=== PATIENT | female | born 1940 ===

== ENCOUNTER 2022-06-02 13:17 | Emergency (ER) | payer MEDICARE ==
[2022-06-02 13:47] LABS: ABG BASE EXCESS -28.4 mmol/L (-2.0-3.0); ABG CARBOXYHEMOGLOBIN 0.3 % (0.0-1.5); ABG METHEMOGLOBIN 0.6 % (0.0-1.5); ABG OXYGEN CONTENT 12.7 mL/dL (15.0-23.0); ABG OXYGEN SATURATION 99.4 % (95.0-98.0); ABG OXYHEMOGLOBIN 98.5 % (94.0-100.0); ABG PCO2 31 mmHg (35-45); ABG TOTAL HEMOGLOBIN 8.4 G/dL (12.0-18.0); PO2, ARTERIAL BG 373.3 mmHg (71.0-79.0); SOURCE, BLOOD GAS ARTERIAL; TEMPERATURE, FAHRENHEIT, BG 98.6 FAHREN (96.0-98.6)
[2022-06-02 13:50] LABS: ABG PH 6.847 (7.35-7.450); SITE, BLOOD GAS ALINE
[2022-06-02 13:51] LABS: O2 DEVICE,BLOOD GAS AMBU-BAG (ROOM AIR)
[2022-06-02 14:20] LABS: BASOPHILS % (AUTO) 0.4 % (0.0-2.0); EOSINOPHILS % (AUTO) 0.6 % (1.0-6.0); HEMATOCRIT 22.8 % (36-46); LYMPHOCYTES # (AUTO) 2.1 K/uL (1.0-4.8); LYMPHOCYTES % (AUTO) 21.1 % (22.0-44.0); MEAN CORPUSCULAR HEMOGLOBIN 33.9 pg (26.0-34.0); MEAN CORPUSCULAR HGB CONC 29.5 G/dL (31.0-37.0); MEAN CORPUSCULAR VOLUME 115 fL (80-100); MONOCYTES # (AUTO) 0.2 K/uL (0.1-1.0); MONOCYTES % (AUTO) 2.4 % (2.0-9.0); NEUTROPHILS # (AUTO) 7.6 K/uL (1.8-7.7); NEUTROPHILS % (AUTO) 75.5 % (40.0-70.0); RED BLOOD CELL COUNT(AUTO) 1.98 MIL/uL (4.00-5.20); RED CELL DISTRIBUTION WIDTH 18.9 % (11.5-14.5)
[2022-06-02 14:34] LABS: B-TYPE NATRIURETIC PEPTIDE 204 pg/mL (0-100)
[2022-06-02 14:35] LABS: ALANINE AMINOTRANSFERASE 2414 U/L (12-78); ALBUMIN 1.6 g/dL (3.4-5.0); ALKALINE PHOSPHATASE 112 U/L (46-116); ANION GAP 17 mmol/L (8-16); CALCIUM, TOTAL 7.7 mg/dL (8.8-10.5); CARBON DIOXIDE 12 mmol/L (22-29); CHLORIDE 120 mmol/L (98-107); CREATININE 3.99 mg/dL (0.60-1.30); GLUCOSE,RANDOM 158 mg/dL (70-110); LIPASE 339 U/L (73-393); SODIUM SERUM 149 mmol/L (136-145); TOTAL PROTEIN, SERUM 4.3 g/dL (6.4-8.2); UREA NITROGEN, BLOOD 79 mg/dL (7-18)
[2022-06-02 14:46] LABS: LACTIC ACID 11.3 mmol/L (0.4-2.0)
[2022-06-02 14:47] LABS: GLOMERULAR FILTR. RATE CALC 11 mL/min (>60); POTASSIUM 6.7 mmol/L (3.5-5.1)
[2022-06-02 15:06] LABS: ASPARTATE AMINOTRANSFERASE 2520 U/L (15-37)
[2022-06-02 15:14] LABS: HEMOGLOBIN 6.7 g/dL (12.0-16.0)
[2022-06-02 15:15] LABS: PLATELET COUNT (AUTO) 59 K/uL (150-450); PLATELET MORPHOLOGY COMMENT LARGE PLTS PRESENT
== END 2022-06-02 19:00 ==
LOC: EDBD 13:28 → EMS 13:28
DX: I46.9 Cardiac arrest, cause unspecified (principal)
CPT/HCPCS: 99291; 92950; 31500; 80053; 83605; 83690; 83880; 84484; 85025; 36415; 82805; 99292; 36600; G0238